=== PATIENT | male | born 2005 ===

== ENCOUNTER 2025-05-19 15:31 | Emergency (ER) | payer OTHER ==
[2025-05-19] MEDS: Tetracaine HCl/PF 0.5% 4 ML Bottle EYERT ONE (15:59)
[2025-05-19] MEDS ORDERED: Sodium Chloride 0.9% 10 ML Syringe FLUSH PRN (16:21)
[2025-05-19] MEDS: Erythromycin Base 0.5% Ophth Oint 3.5 GM Tube EYEBOTH ONE (17:49)
== END 2025-05-19 18:00 | disposition home or self-care (01) ==
LOC: DL.ED 15:31
DX: T15.81XA Foreign body in other and multiple parts of external eye, right eye, initial encounter (principal); S05.31XA Ocular laceration without prolapse or loss of intraocular tissue, right eye, initial encounter; W44.8XXA Other foreign body entering into or through a natural orifice, initial encounter; Y93.89 Activity, other specified
CPT/HCPCS: 65205; 99283; A9270; J3490